=== PATIENT | male | born 1960 | race African-American/Black ===

== ENCOUNTER 2017-11-07 09:01 | Emergency (ER) | payer BC ==
[2017-11-07 09:07] VITALS: BP 136/80; PULSE 56; RESP 18; TEMP 98.3
[2017-11-07] MEDS ORDERED: ORPHENADRINE 30 MG/ML 2 ML VIAL IM STA (09:22)
[2017-11-07] MEDS ORDERED: KETOROLAC 60 MG/2 ML VIAL IM STA (09:22)
--- NOTE | 2017-11-07 09:24 | ED ---
General Adult HPI - General Chief complaint: Back Pain/Injury Stated complaint: Back Pain Time Seen by Provider: 11/07/17 09:09 Source: patient, RN notes reviewed, old records reviewed Mode of arrival: ambulatory Limitations: no limitations - History of Present Illness Initial comments: Patient is a 56-year-old male chief complaint of lumbar back pain. He reports that yesterday evening after loading cars onto his trailer he started to have the pain while riding his vehicle. Patient reports that he 5 felt a pop and pull in his lumbar spine. Does have a history of a lumbar fusion. He reports that that was in by Dr. Mejía and Norm. Patient states that he has no numbness or tingling and legs. He denies any abdominal pain. Denies any saddle anesthesias, hematuria. - Related Data Previous Rx's Medication Instructions Recorded Acetaminophen-Codeine 300-30mg 1 tab PO Q6H PRN 3 Days #12 tablet 11/07/17 [Tylenol w/codeine #3] Cyclobenzaprine [Flexeril] 10 mg PO TID #15 tab 11/07/17 Dexamethasone 0.75 mg PO DAILY #12 tab 11/07/17 Allergies Allergy/AdvReac Type Severity Reaction Status Date / Time No Known Allergies Allergy Verified 11/07/17 09:07 Review of Systems ROS Statement: Those systems with pertinent positive or pertinent negative responses have been documented in the HPI. ROS Other: All systems not noted in ROS Statement are negative. Past Medical History Past Medical History: No Reported History History of Any Multi-Drug Resistant Organisms: None Reported Past Surgical History: Back Surgery, Orthopedic Surgery Additional Past Surgical History / Comment(s): fractured neck knee surg Past Psychological History: No Psychological Hx Reported Smoking Status: Never smoker Past Alcohol Use History: Occasional Past Drug Use History: None Reported General Exam - General Exam Comments Initial Comments: This 56-year-old male. Alert and oriented. No significant distress. Does appear in moderate discomfort. Limitations: no limitations General appearance: alert, in no apparent distress Head exam: Present: atraumatic, normocephalic, normal inspection Eye exam: Present: normal appearance, PERRL, EOMI. Absent: scleral icterus, conjunctival injection, periorbital swelling ENT exam: Present: normal exam, mucous membranes moist Neck exam: Present: normal inspection. Absent: tenderness, meningismus, lymphadenopathy Respiratory exam: Present: normal lung sounds bilaterally. Absent: respiratory distress, wheezes, rales, rhonchi, stridor Cardiovascular Exam: Present: regular rate, normal rhythm, normal heart sounds. Absent: systolic murmur, diastolic murmur, rubs, gallop, clicks GI/Abdominal exam: Present: soft, normal bowel sounds. Absent: distended, tenderness, guarding, rebound, rigid Extremities exam: Present: normal inspection, full ROM, normal capillary refill. Absent: tenderness, pedal edema, joint swelling, calf tenderness Back exam: Present: normal inspection, tenderness (Patient has tenderness over the lumbar spine 2 and 3.) Neurological exam: Present: alert, oriented X3, CN II-XII intact Psychiatric exam: Present: normal affect, normal mood Skin exam: Present: warm, dry, intact, normal color. Absent: rash Course Vital Signs 11/07/17 09:03 Temperature 98.3 F Pulse Rate 56 L Respiratory 18 Rate Blood Pressure 136/80 O2 Sat by Pulse 99 Oximetry Medical Decision Making - Medical Decision Making 56-year-old male presents emergency department today complaining of lower back pain. Occur after he was loading his truck and his trailer. Patient is tender over L2-L3. Has a history of L4-L5 fusion. X-ray today shows no acute processes evidence of degenerative disc disease. At this time I'll put the Patient on some steroids muscle relaxers and pain medication for a few days. I discussed falling up with a aviation medicine specialist. Discussed return parameters including paralysis or saddle anesthesias. agrees to treatment plan will comply. Return parameters were discussed. - Radiology Data Radiology results: report reviewed Anterior vertebral fusion L4-L5. No vertebral collapse or malalignment. Hypertrophic facet arthropathy with moderate dissection plate degenerative changes mid to lumbar spine. Moderate disc and placed disease at L3-L4 and L5- S1. Disposition Clinical Impression: Acute low back pain, DDD (degenerative disc disease) Disposition: HOME SELF-CARE Condition: Good Instructions: Acute Low Back Pain (ED) Additional Instructions: Patient has a follow-up with aviation medicine specialist. Take the medication as prescribed. Use heat and ice for the back. Return to emergency department if any alarming signs or symptoms occur, such as loss of bowel or bladder control.. Prescriptions: Acetaminophen-Codeine 300-30mg [Tylenol w/codeine #3] 1 tab PO Q6H PRN 3 Days # 12 tablet PRN Reason: Pain Cyclobenzaprine [Flexeril] 10 mg PO TID #15 tab Dexamethasone 0.75 mg PO DAILY #12 tab Is patient prescribed a controlled substance at d/c from ED?: Yes When asked, does pt state using other controlled substances?: No If prescribed controlled substance>3 days was MAPS reviewed?: Prescribed <3 Days If opioid is for acute pain is fill amount 7 days or less?: Yes If Rx opioid, was Start Talking consent form obtained?: Yes Referrals: None,Stated [Primary Care Provider] - 1-2 days Sahara Ann MD [STAFF PHYSICIAN] - 1-2 days Leena Martinez DO [Doctor of Osteopathic Medicine] - 1-2 days Time of Disposition: 10:22
--- NOTE | 2017-11-07 09:57 | XR ---
EXAMINATION TYPE: XR lumbar spine 2 or 3V DATE OF EXAM: 11/07/2017 COMPARISON: NONE HISTORY: 56-year-old male with low back pain from lifting and pulling at work TECHNIQUE: 3 views FINDINGS: 5 lumbar type vertebral bodies. L4-L5 intervertebral fusion device is present. Hypertrophic facet art hropathy mid to lower lumbar spine and moderate disc/endplate degenerative change at L3-L4 and L5-S1. Alignment is maintained and vertebral body heights are preserved. IMPRESSION: 1. Intervertebral fusion device at L4-L5. No vertebral compression collapse or malalignment. 2. Hypertrophic facet arthropathy and moderate dissection plate degenerative change mid to lower lumb ar spine.
== END 2017-11-07 10:48 | disposition home or self-care (01) ==
LOC: EC 09:01
DX: M51.37 Other intervertebral disc degeneration, lumbosacral region (principal); M46.96 Unspecified inflammatory spondylopathy, lumbar region; M47.816 Spondylosis without myelopathy or radiculopathy, lumbar region; Z98.1 Arthrodesis status; X50.0XXA Overexertion from strenuous movement or load, initial encounter; Y93.89 Activity, other specified
CPT/HCPCS: 72100; 99284; 96372 ×2; J2360; J1885

== ENCOUNTER 2019-07-21 10:01 | Emergency (ER) | payer BC, OTHER ==
[2019-07-21 10:10] VITALS: RESP 16; TEMP 97.8
[2019-07-21] MEDS ORDERED: SODIUM CHLORIDE 0.9% 1,000 ML IV STA ×2 (10:28)
--- NOTE | 2019-07-21 10:33 | ED ---
General Adult HPI - General Chief complaint: Recheck/Abnormal Lab/Rx Stated complaint: fever, bodyaches Time Seen by Provider: 07/21/19 10:11 Source: patient, RN notes reviewed, old records reviewed Mode of arrival: ambulatory - History of Present Illness Initial comments: This patient's a 58-year-old male who presents emergency Department today with complaints of bodyaches, intermittent fever, dry cough that started on Thursday. He reports that since that time he's been having significant bodyaches. He also reports that her skin feels like it's burning and very sensitive to touch all over. Patient also complains of some swelling over his right flank. Patient states that he's had no recent Motrin or Tylenol. Patient denies any fever at this time. He states that last night as well he developed some left-sided chest discomfort with shooting pains on the left left arm. Patient states that he has no previous past medical history of cardiac history. - Related Data Previous Rx's Medication Instructions Recorded Acetaminophen-Codeine 300-30mg 1 tab PO Q6H PRN 3 Days #12 tablet 11/07/17 [Tylenol w/codeine #3] Cyclobenzaprine [Flexeril] 10 mg PO TID #15 tab 11/07/17 Dexamethasone 0.75 mg PO DAILY #12 tab 11/07/17 Cyclobenzaprine [Flexeril] 10 mg PO TID #12 tab 07/21/19 Ibuprofen 600 mg PO Q6H #20 tab 07/21/19 methylPREDNISolone Dose Pack 4 mg PO DIRECTED #21 package 07/21/19 [Medrol Dose Pack] Allergies Allergy/AdvReac Type Severity Reaction Status Date / Time No Known Allergies Allergy Verified 07/21/19 10:10 Review of Systems ROS Statement: Those systems with pertinent positive or pertinent negative responses have been documented in the HPI. ROS Other: All systems not noted in ROS Statement are negative. Past Medical History Past Medical History: No Reported History History of Any Multi-Drug Resistant Organisms: None Reported Past Surgical History: Back Surgery, Orthopedic Surgery Additional Past Surgical History / Comment(s): fractured neck knee surg Past Psychological History: No Psychological Hx Reported Smoking Status: Never smoker Past Alcohol Use History: Occasional Past Drug Use History: None Reported General Exam - General Exam Comments Initial Comments: 58-year-old male. Alert and oriented 3. Patient appears in no significant distress. General appearance: alert, in no apparent distress Head exam: Present: atraumatic, normocephalic, normal inspection Eye exam: Present: normal appearance, PERRL, EOMI. Absent: scleral icterus, conjunctival injection, periorbital swelling ENT exam: Present: normal exam, mucous membranes moist Neck exam: Present: normal inspection. Absent: tenderness, meningismus, lymphadenopathy Respiratory exam: Present: normal lung sounds bilaterally. Absent: respiratory distress, wheezes, rales, rhonchi, stridor Cardiovascular Exam: Present: regular rate, normal rhythm, normal heart sounds. Absent: systolic murmur, diastolic murmur, rubs, gallop, clicks GI/Abdominal exam: Present: soft, normal bowel sounds. Absent: distended, tenderness, guarding, rebound, rigid Extremities exam: Present: normal inspection, full ROM, normal capillary refill. Absent: tenderness, pedal edema, joint swelling, calf tenderness Back exam: Present: normal inspection Neurological exam: Present: alert, oriented X3, CN II-XII intact Psychiatric exam: Present: normal affect, normal mood Skin exam: Present: warm, dry, intact, normal color, other (Patient's skin is very sensitive to light touch over her back, arms and abdomen.). Absent: rash Course Vital Signs 07/21/19 07/21/19 10:03 10:10 Temperature 97.8 F Pulse Rate 61 61 Respiratory 16 Rate Blood Pressure 144/82 133/61 O2 Sat by Pulse 99 99 Oximetry EKG Findings - EKG Comments: EKG Findings:: EKG performed at 1035 shows sinus bradycardia, otherwise normal EKG. Ventricular rate of 59 bpm. Verbal is 160 ms. QRS duration is 74 ms. QT QTc is 396/392 ms. Medical Decision Making - Medical Decision Making Patient's 58-year-old male presents emergency department today for evaluation for joint aches bodyaches. He had a fever dry cough earlier in the week. Symptoms started on Thursday. Patient's labs are reviewed and unremarkable. EKG chest x-ray were reviewed. Troponin test is negative. Chest x-ray question atelectasis versus bronchitis or an interstitial pneumonitis. Patient has no respiratory distress. No wheezing. Patient is positive for influenza A. I discussed patient's symptoms are related to myalgias from influenza a. Discussed treatment at this time with steroids and temperature medication. Patient is agreeable to treatment plan will comply. Given a note for work. - Lab Data Result diagrams: 07/21/19 10:47 07/21/19 10:47 Lab Results 07/21/19 07/21/19 07/21/19 Range/Units 10:38 10:47 10:47 WBC (3.8-10.6) k/uL RBC (4.30-5.90) m/uL Hgb (13.0-17.5) gm/dL Hct (39.0-53.0) % MCV (80.0-100.0) fL MCH (25.0-35.0) pg MCHC (31.0-37.0) g/dL RDW (11.5-15.5) % Plt Count (150-450) k/uL Neutrophils % % Lymphocytes % % Monocytes % % Eosinophils % % Basophils % % Neutrophils # (1.3-7.7) k/uL Lymphocytes # (1.0-4.8) k/uL Monocytes # (0-1.0) k/uL Eosinophils # (0-0.7) k/uL Basophils # (0-0.2) k/uL PT (9.0-12.0) sec INR (<1.2) APTT (22.0-30.0) sec Sodium 135 L (137-145) mmol/L Potassium 4.6 (3.5-5.1) mmol/L Chloride 100 (98-107) mmol/L Carbon Dioxide 25 (22-30) mmol/L Anion Gap 10 mmol/L BUN 12 (9-20) mg/dL Creatinine 1.24 (0.66-1.25) mg/dL Est GFR (CKD-EPI)AfAm 74 (>60 ml/min/1.73 sqM) Est GFR (CKD-EPI)NonAf 64 (>60 ml/min/1.73 sqM) Glucose 87 (74-99) mg/dL Calcium 9.4 (8.4-10.2) mg/dL Magnesium 2.1 (1.6-2.3) mg/dL Total Bilirubin 0.8 (0.2-1.3) mg/dL AST 45 (17-59) U/L ALT 24 (4-49) U/L Alkaline Phosphatase 59 (38-126) U/L Troponin I (0.000-0.034) ng/mL NT-Pro-B Natriuret Pep 13 pg/mL Total Protein 7.2 (6.3-8.2) g/dL Albumin 4.2 (3.5-5.0) g/dL Amylase 107 (30-110) U/L Lipase 227 (23-300) U/L Influenza Type A RNA Detected H (Not Detectd) Influenza Type B (PCR) Not Detected (Not Detectd) 07/21/19 07/21/19 07/21/19 Range/Units 10:47 10:47 10:47 WBC 4.6 (3.8-10.6) k/uL RBC 5.51 (4.30-5.90) m/uL Hgb 15.9 (13.0-17.5) gm/dL Hct 48.8 (39.0-53.0) % MCV 88.7 (80.0-100.0) fL MCH 28.9 (25.0-35.0) pg MCHC 32.6 (31.0-37.0) g/dL RDW 12.3 (11.5-15.5) % Plt Count 183 (150-450) k/uL Neutrophils % 53 % Lymphocytes % 35 % Monocytes % 9 % Eosinophils % 0 % Basophils % 0 % Neutrophils # 2.4 (1.3-7.7) k/uL Lymphocytes # 1.6 (1.0-4.8) k/uL Monocytes # 0.4 (0-1.0) k/uL Eosinophils # 0.0 (0-0.7) k/uL Basophils # 0.0 (0-0.2) k/uL PT 9.4 (9.0-12.0) sec INR 0.9 (<1.2) APTT 25.7 (22.0-30.0) sec Sodium (137-145) mmol/L Potassium (3.5-5.1) mmol/L Chloride (98-107) mmol/L Carbon Dioxide (22-30) mmol/L Anion Gap mmol/L BUN (9-20) mg/dL Creatinine (0.66-1.25) mg/dL Est GFR (CKD-EPI)AfAm (>60 ml/min/1.73 sqM) Est GFR (CKD-EPI)NonAf (>60 ml/min/1.73 sqM) Glucose (74-99) mg/dL Calcium (8.4-10.2) mg/dL Magnesium (1.6-2.3) mg/dL Total Bilirubin (0.2-1.3) mg/dL AST (17-59) U/L ALT (4-49) U/L Alkaline Phosphatase (38-126) U/L Troponin I <0.012 (0.000-0.034) ng/mL NT-Pro-B Natriuret Pep pg/mL Total Protein (6.3-8.2) g/dL Albumin (3.5-5.0) g/dL Amylase (30-110) U/L Lipase (23-300) U/L Influenza Type A RNA (Not Detectd) Influenza Type B (PCR) (Not Detectd) - Radiology Data Radiology results: report reviewed Chest x-ray shows basilar atelectasis favored over pneumonia. Question and interstitium camisa she with bronchitis or an interstitial pneumonitis correlate clinically. Disposition Clinical Impression: Influenza, Myalgia and myositis Disposition: HOME SELF-CARE Condition: Good Instructions (If sedation given, give patient instructions): Influenza (ED) Additional Instructions: Advised to rest, remain hydrated. Follow-up with your primary care physicians. Take anti-inflammatory medicine, steroids and muscle relaxers as prescribed. Encourage fluid intake. Return to the ED if any alarming signs or symptoms occur. Prescriptions: Cyclobenzaprine [Flexeril] 10 mg PO TID #12 tab Ibuprofen 600 mg PO Q6H #20 tab methylPREDNISolone Dose Pack [Medrol Dose Pack] 4 mg PO DIRECTED #21 package Is patient prescribed a controlled substance at d/c from ED?: No Referrals: Nonstaff,Physician [REFERRING] - 1-2 days Time of Disposition: 12:42
[2019-07-21] MEDS ORDERED: KETOROLAC 30 MG/ML 1 ML VIAL IVP STA (10:55)
[2019-07-21] MEDS ORDERED: ORPHENADRINE 30 MG/ML 2 ML VIAL IVP STA (10:55)
--- NOTE | 2019-07-21 10:59 | XR ---
EXAMINATION TYPE: XR chest 2V DATE OF EXAM: 07/21/2019 COMPARISON: NONE TECHNIQUE: PA and lateral views submitted. HISTORY: Chest pain FINDINGS: The lungs are clear and there is no pneumothorax, pleural effusion, or focal pneumonia. Hypertrophi c and degenerative changes of the spine. Coarsened interstitium. Biapical pleural thickening. Subsegm ental changes at both lung bases. IMPRESSION: 1. Basilar atelectasis favored over pneumonia. 2. Coarsened interstitium can be associated with a bronchitis or interstitial pneumonitis correlate c linically.
[2019-07-21 11:13] LABS: Basophils % (A) 0 %; Eosinophils % (A) 0 %; HCT 48.8 % (39.0-53.0); HGB 15.9 gm/dL (13.0-17.5); Lymphocytes # (A) 1.6 k/uL (1.0-4.8); Lymphocytes % (A) 35 %; MCH 28.9 pg (25.0-35.0); MCHC 32.6 g/dL (31.0-37.0); MCV 88.7 fL (80.0-100.0); Mean Platelet Volume 8.3; Monocytes # (A) 0.4 k/uL (0-1.0); Monocytes % (A) 9 %; Neutrophils # (A) 2.4 k/uL (1.3-7.7); Neutrophils % (A) 53 %; Platelet Count 183 k/uL (150-450); RBC 5.51 m/uL (4.30-5.90); RDW 12.3 % (11.5-15.5); WBC 4.6 k/uL (3.8-10.6)
[2019-07-21 11:21] LABS: Albumin 4.2 g/dL (3.5-5.0); Calcium 9.4 mg/dL (8.4-10.2); Total Bilirubin 0.8 mg/dL (0.2-1.3); Total Protein 7.2 g/dL (6.3-8.2)
[2019-07-21 11:25] LABS: INR 0.9 (<1.2); Partial Thromboplastin Time 25.7 sec (22.0-30.0); Prothrombin Time 9.4 sec (9.0-12.0)
[2019-07-21 11:27] LABS: Magnesium 2.1 mg/dL (1.6-2.3); Potassium 4.6 mmol/L (3.5-5.1)
[2019-07-21 12:52] LABS: Appearance,Urine Clear (Clear); Bilirubin,Urine Negative (Negative); Blood,Urine Negative (Negative); Color,Urine Colorless; Glucose,Urine (UA) Negative (Negative); Ketones,Urine Negative (Negative); Leukocyte Esterase,Urine Negative (Negative); Nitrite,Urine Negative (Negative); Protein,Urine Negative (Negative); Specific Gravity,Urine 1.002 (1.001-1.035); Urobilinogen,Urine <2.0 mg/dL (<2.0)
[2019-07-21 12:55] VITALS: BP 132/74; PULSE 76
== END 2019-07-21 12:50 | disposition home or self-care (01) ==
LOC: EC 10:01
DX: J10.1 Influenza due to other identified influenza virus with other respiratory manifestations (principal); M60.9 Myositis, unspecified; R20.8 Other disturbances of skin sensation; Z53.8 Procedure and treatment not carried out for other reasons
CPT/HCPCS: 99284; 96374; 96375; 96361; 36415; 93005; 83880; 80053; 82150; 83690; 83735; 84484; 85025; 85610; 85730; 81003; 87502; 71046; J2360; J1885